=== PATIENT | female | born 1970 | race Two or more races ===

== ENCOUNTER 2016-12-05 13:56 | Emergency (ER) | payer OTHER ==
[2016-12-05 14:20] VITALS: TEMP 97.5
[2016-12-05] MEDS ORDERED: NS 1,000 ML IV ONE (14:47)
--- NOTE | 2016-12-05 14:47 | EDPHY ---
H & P Stated Complaint: vaginal Bleeding, Cramping HPI/ROS: HPI CHIEF COMPLAINT: Cramping, menstrual bleeding HISTORY OF PRESENT ILLNESS: This patient 46-year-old female she presents emergency room by private vehicle for menstrual bleeding and pelvic cramping. She states initially yesterday she developed some pelvic cramping. She then developed vaginal bleeding today around 4:00 a.m.. Has had 3 tampons today. Bright red blood with some clots. Ongoing pelvic cramping. Denies being . States she has not had a menses in 2 years. No new medications. Past Medical History: No significant medical history Past Surgical History: Hernia repair and breast augmentation Social History: Denies daily use drugs alcohol tobacco products Family History: Noncontributory ROS REVIEW OF SYSTEMS: A comprehensive 10 point review of systems is otherwise negative aside from elements mentioned in the history of present illness. Exam Constitutional appears well nontoxic triage nursing summary reviewed, vital signs reviewed, awake/alert. Eyes normal conjunctivae and sclera, EOMI, PERRLA. HENT normal inspection, atraumatic, moist mucus membranes, no epistaxis, neck supple/ no meningismus, no raccoon eyes. Respiratory clear to auscultation bilaterally, normal breath sounds, no respiratory distress, no wheezing. Cardiovascular rate normal, regular rhythm, no murmur, no edema, distal pulses normal. Gastrointestinal soft, non-tender, no rebound, no guarding, normal bowel sounds, no distension, no pulsatile mass. Genitourinary no CVA tenderness. Musculoskeletal no midline vertebral tenderness, full range of motion, no calf swelling, no tenderness of extremities, no meningismus, good pulses, neurovascularly intact. Skin pink, warm, & dry, no rash, skin atraumatic. Neurologic awake, alert and oriented x 3, AAOx3, moves all 4 extremities equally, motor intact, sensory intact, CN II-XII intact, normal cerebellar, normal vision, normal speech. Psychiatric normal mood/affect. Heme/Lymph/Immune no lymphadenopathy. Differential Diagnosis: Includes but is not limited to in a particular order dysfunctional uterine bleeding, fibroid, AVM, ectopic , , miscarriage Medical Decision Making: Plan for this patient IV establishment, check blood work, electrolytes, CBC, , urinalysis, pelvic ultrasound, pelvic exam. Re-evaluation: 1553: Pelvic exam performed. [facility]. Pelvic exam unremarkable there is dark clotted blood posterior vault. Otherwise unremarkable. No significant hemorrhaging on exam. Ultrasound of the Pelvis The results of the study are 14mm endometrial thickening. Upper limit of normal. Otherwise unremarkable pelvic ultrasound. No mass no fibroids visualized.. I discussed the results of this study with the radiologist Dr. Oro. [id number]: Will consult OBGYN. 1706: I spoke with Dr. Cristina. Review this patient's case in detail. Her H&H are stable. She is hemodynamically stable no acute distress. Recommends following up they will call for follow-up appointment. She needs endometrial biopsy. I have explained this to the patient. She is comfortable going home. Ultrasound, blood work reviewed. She is not hemorrhaging here. Blood pressure stable. H&H stable. Source: Patient - Personal History LMP (Females 10-55): Now Current Tetanus/Diphtheria Vaccine: Yes Current Tetanus Diphtheria and Acellular Pertussis (TDAP): Yes - Medical/Surgical History Hx Asthma: No Hx Chronic Respiratory Disease: No Hx Diabetes: No Hx Cardiac Disease: No Hx Renal Disease: No Hx Cirrhosis: No Hx Alcoholism: No Hx HIV/AIDS: No Hx Splenectomy or Spleen Trauma: No Other PMH: PMH: denies. PSH: breast aumentation, hernia - Social History Smoking Status: Never smoked Constitutional: Initial Vital Signs Temperature (C) 36.4 C 12/05/16 13:59 Heart Rate 60 12/05/16 13:59 Respiratory Rate 18 12/05/16 13:59 Blood Pressure 123/76 H 12/05/16 13:59 O2 Sat (%) 96 12/05/16 13:59 O2 Delivery Mode Room Air Allergies/Adverse Reactions: No Known Allergies Allergy (Unverified 12/05/16 14:03) Home Medications: Medication Instructions Recorded NK [No Known Home Meds] 12/05/16 Medical Decision Making - Diagnostics Imaging Results: Imaging Impressions Pelvic/Renal Ultrasound 12/05/16 14:48 Impression: 1. Upper-normal endometrial lining with no clear etiology for vaginal bleeding. Query adenomyosis. 2. Normal ovaries. No adnexal mass or free fluid. Findings discussed with Emergency Department physician, Oscar Limon MD, at 1605 hours 12/05/2016. - Data Points Laboratory Results: Laboratory Results 12/05/16 15:01 08/17/17 15:01 12/05/16 12/05/16 12/05/16 15:01 15:01 15:01 WBC RBC Hgb Hct MCV MCH MCHC RDW Plt Count MPV Neut % (Auto) Lymph % (Auto) [place] % (Auto) Eos % (Auto) Baso % (Auto) Nucleat RBC Rel Count Absolute Neuts (auto) Absolute Lymphs (auto) Absolute Monos (auto) Absolute Eos (auto) Absolute Basos (auto) Absolute Nucleated RBC Immature Gran % Immature Gran # PT 13.7 SEC SEC (12.0-15.0) INR 1.06 (0.83-1.16) APTT 25.0 SEC SEC (23.0-38.0) Sodium 142 mEq/L mEq/L (134-144) Potassium 4.2 mEq/L mEq/L (3.5-5.2) Chloride 102 mEq/L mEq/L (97-110) Carbon Dioxide 26 mEq/l mEq/l (22-31) Anion Gap 14 mEq/L mEq/L (8-16) BUN 22 mg/dL mg/dL (7-23) Creatinine 0.9 mg/dL mg/dL (0.6-1.0) Estimated GFR > 60 Glucose 52 mg/dL L mg/dL (70-100) Calcium 9.0 mg/dL mg/dL (8.5-10.4) Beta HCG, Qual NEGATIVE Urine Color Urine Appearance Urine pH Ur Specific [place] Urine Protein Urine Ketones Urine Blood Urine Nitrate Urine Bilirubin Urine Urobilinogen Ur Leukocyte Esterase Urine Glucose 12/05/16 12/05/16 15:01 15:00 WBC 8.33 10^3/uL 10^3/uL (3.80-9.50) RBC 4.57 10^6/uL 10^6/uL (4.18-5.33) Hgb 14.5 g/dL g/dL (12.6-16.3) Hct 42.6 % % (38.0-47.0) MCV 93.2 fL fL (81.5-99.8) MCH 31.7 pg pg (27.9-34.1) MCHC 34.0 g/dL g/dL (32.4-36.7) RDW 13.2 % % (11.5-15.2) Plt Count 212 10^3/uL 10^3/uL (150-400) MPV 10.0 fL fL (8.7-11.7) Neut % (Auto) 56.7 % % (39.3-74.2) Lymph % (Auto) 32.5 % % (15.0-45.0) [place] % (Auto) 8.9 % % (4.5-13.0) Eos % (Auto) 1.2 % % (0.6-7.6) Baso % (Auto) 0.6 % % (0.3-1.7) Nucleat RBC Rel Count 0.0 % % (0.0-0.2) Absolute Neuts (auto) 4.72 10^3/uL 10^3/uL (1.70-6.50) Absolute Lymphs (auto) 2.71 10^3/uL 10^3/uL (1.00-3.00) Absolute Monos (auto) 0.74 10^3/uL 10^3/uL (0.30-0.80) Absolute Eos (auto) 0.10 10^3/uL 10^3/uL (0.03-0.40) Absolute Basos (auto) 0.05 10^3/uL 10^3/uL (0.02-0.10) Absolute Nucleated RBC 0.00 10^3/uL 10^3/uL (0-0.01) Immature Gran % 0.1 % % (0.0-1.1) Immature Gran # 0.01 10^3/uL 10^3/uL (0.00-0.10) PT INR APTT Sodium Potassium Chloride Carbon Dioxide Anion Gap BUN Creatinine Estimated GFR Glucose Calcium Beta HCG, Qual Urine Color COLORLESS Urine Appearance CLEAR Urine pH 7.0 (5.0-7.5) Ur Specific [place] 1.002 (1.002-1.030) Urine Protein NEGATIVE (NEGATIVE) Urine Ketones NEGATIVE (NEGATIVE) Urine Blood NEGATIVE (NEGATIVE) Urine Nitrate NEGATIVE (NEGATIVE) Urine Bilirubin NEGATIVE (NEGATIVE) Urine Urobilinogen NEGATIVE EU EU (0.2-1.0) Ur Leukocyte Esterase NEGATIVE (NEGATIVE) Urine Glucose NEGATIVE (NEGATIVE) Medications Given: Discontinued Medications Sodium Chloride (Ns) 1,000 mls @ 0 mls/hr IV EDNOW ONE; Wide Open PRN Reason: Protocol Stop: 12/05/16 14:48 Last Admin: 12/05/16 15:15 Dose: 1,000 mls Departure - Departure Disposition: Home, Routine, Self-Care Clinical Impression: DUB (dysfunctional uterine bleeding) Condition: Good Instructions: Dysfunctional Uterine Bleeding (ED) Additional Instructions: 1. Return emergency room if you have severe vaginal bleeding this includes more than 1 pad per hour you feel lightheaded or have severe pain. 2. Please follow up with OBGYN outpatient. Please call their for follow-up appointment. Referrals: Lety Cristina MD [Medical Doctor] - As per Instructions
[2016-12-05 15:08] LABS: % IMMATURE GRANULYOCYTES 0.1 % (0.0-1.1); ABSOLUTE IMMATURE GRANULOCYTES 0.01 10^3/uL (0.00-0.10); ADD DIFF? NO; ADD MORPH? NO; ADD SCAN? NO; ATYPICAL LYMPHOCYTE FLAG 10 (0-99); FRAGMENT RBC FLAG 0 (0-99); HEMATOCRIT 42.6 % (38.0-47.0); HEMOGLOBIN 14.5 g/dL (12.6-16.3); LEFT SHIFT FLG 0 (0-99); LIPEMIA HEMOLYSIS FLAG 90 (0-99); MEAN CELL HEMOGLOBIN 31.7 pg (27.9-34.1); MEAN CELL VOLUME 93.2 fL (81.5-99.8); PLATELET CLUMPS FLAG 10 (0-99); PLATELET COUNT 212 10^3/uL (150-400); RED BLOOD CELL COUNT 4.57 10^6/uL (4.18-5.33); RED CELL DISTRIBUTION WIDTH 13.2 % (11.5-15.2)
[2016-12-05 15:15] LABS: COLOR COLORLESS; LEUKOCYTE ESTERASE,URINE NEGATIVE (NEGATIVE); NITRITE,URINE NEGATIVE (NEGATIVE)
[2016-12-05 15:18] LABS: INR 1.06 (0.83-1.16); PROTIME(PATIENT) 13.7 SEC (12.0-15.0)
[2016-12-05 15:27] LABS: ANION GAP 14 mEq/L (8-16); CARBON DIOXIDE 26 mEq/l (22-31); CHLORIDE 102 mEq/L (97-110); CREATININE 0.9 mg/dL (0.6-1.0); GLOMERULAR FILTRATION RATE > 60; GLUCOSE 52 mg/dL (70-100); POTASSIUM 4.2 mEq/L (3.5-5.2); SODIUM 142 mEq/L (134-144)
[2016-12-05 16:14] VITALS: BP 103/75; PULSE 51; RESP 16; O2SAT 97
== END 2016-12-05 17:30 | disposition home or self-care (01) ==
DX: N93.8 Other specified abnormal uterine and vaginal bleeding (principal); E86.9 Volume depletion, unspecified

== ENCOUNTER 2017-08-26 10:26 | Inpatient (IN) | payer OTHER ==
[2017-08-26] MEDS ORDERED: NS 500 ML IV ONE (10:36)
[2017-08-26] MEDS ORDERED: IOPAMIDOL (ISOVUE-300) 100 ML BTL ONE (10:41)
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
[2017-08-26 10:49] LABS: PLATELET COUNT 244 10^3/uL (150-400)
[2017-08-26 11:03] LABS: INR 0.98 (0.83-1.16); PROTIME(PATIENT) 13.2 SEC (12.0-15.0)
[2017-08-26] MEDS ORDERED: NALOXONE HCL 0.4 MG/ML INJ IVP PRN (12:03)
[2017-08-26] MEDS ORDERED: HYDROCODONE/APAP 5/325 TAB PO PRN (12:03)
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
[2017-08-26] MEDS: ONDANSETRON 4 MG/2 ML VIAL IVP PRN ×2 (15:26→21:05)
[2017-08-26] MEDS: OXYCODONE/APAP 5/325 TAB PO PRN ×3 (15:26→23:38)
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
[2017-08-26] MEDS ORDERED: CETIRIZINE 10 MG TAB PO PRN (21:05)
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
[2017-08-27] MEDS: OXYCODONE/APAP 5/325 TAB PO PRN ×3 (03:43→15:44)
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
[2017-08-27] MEDS: ONDANSETRON DISINTEGRATING 4 MG TAB PO PRN ×3 (07:35→17:53)
--- NOTE | 2017-08-27 12:21 | ASMTCMCOM ---
CM Note CM Note Notes: As of now, no surgeries are scheduled for patient. She will follow up with plastic surgery as an outpatient, Neurosurgery has cleared her, and ortho recommends closed treatment of the pelvic ring injury with protected toe touch weight bearing. PT/OT will work with patient today. FUR TRIMMING MACHINE OPERATOR has cleared her. An inpatient rehab consult has been ordered. Case Management will follow for any potential discharge needs. Date Signed: 08/27/2017 12:20 PM Electronically Signed By:Bridget Kimble RN
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
[2017-08-27] MEDS ORDERED: HYDROmorphONE/DILAUDID 2 MG TAB PO PRN (19:25)
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
[2017-08-28] MEDS: ACETAMINOPHEN 325 MG TAB PO PRN ×2 (00:08→04:23)
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
--- NOTE | 2017-08-28 11:26 | ASMTCMCOM ---
CM Note CM Note Notes: PT/OT were both recommending IPR yesterday but OT now recommending home w/HHC, PT will work w/pt later on today. IPR is following but pt feels she will be able to go home w/HHC since her works from home and will be there to help her. Pt also has 3 children at home. If home w/HHC she would like to use [facility]; notified Laura w/[facility] and they can accept. Will follow up w/PT after they see pt to see if they agree w/home w/HHC. Date Signed: 08/28/2017 11:25 AM Electronically Signed By:Luisa Sanabria RN
[2017-08-28] MEDS: ENOXAPARIN 40 MG/0.4 ML SYR SC SCH (12:39)
[2017-08-28] MEDS: KETOROLAC 30 MG/1 ML SDV IVP PRN ×2 (14:45→22:37)
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
[2017-08-28] MEDS ORDERED: MAGNESIUM HYDROXIDE 30 ML UDCUP PO PRN (20:41)
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
[2017-08-29] MEDS ORDERED: LACTULOSE 20 GM/30 ML UDCUP PO PRN (08:46)
[2017-08-29] MEDS ORDERED: POLYETHYLENE GLYCOL 3350 17 GM PKT PO PRN (08:46)
[2017-08-29] MEDS ORDERED: BISACODYL 10 MG SUPP PR PRN (08:46)
[2017-08-29] MEDS ORDERED: traMADol 50 MG TAB PO PRN (08:47)
[2017-08-29] MEDS: SENNOSIDES/DOCUSATE SODIUM TAB PO SCH ×2 (09:00→22:00)
[2017-08-29] MEDS: ENOXAPARIN 40 MG/0.4 ML SYR SC SCH (09:00)
[2017-08-29] MEDS ORDERED: IOPAMIDOL (ISOVUE-300) 100 ML BTL ONE (09:22)
[2017-08-29] MEDS: KETOROLAC 30 MG/1 ML SDV IVP PRN ×2 (12:36→18:39)
--- NOTE | 2017-08-29 14:25 | ASMTCMCOM ---
CM Note CM Note Notes: Chart reviewed. Patient has Pnuemothorax that is being monitored. The plan is for her to go home with [facility] at this point in time with [facility] when medically cleared. Plan: Home with [facility] services Date Signed: 08/29/2017 02:25 PM Electronically Signed By:Lauren Taylor RN
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
[2017-08-30] MEDS: KETOROLAC 30 MG/1 ML SDV IVP PRN ×2 (04:48→14:59)
[2017-08-30 08:13] VITALS: BP 120/84
[2017-08-30] MEDS: SENNOSIDES/DOCUSATE SODIUM TAB PO SCH (09:33)
[2017-08-30] MEDS: ENOXAPARIN 40 MG/0.4 ML SYR SC SCH (09:34)
[2017-08-30] MEDS: ACETAMINOPHEN 325 MG TAB PO PRN ×2 (09:35→15:34)
--- NOTE | 2017-08-30 13:03 | PDIAF ---
- Diagnosis Diagnosis: Pelvic fracture/scapula fx/pneumothorax Code Status: Full Code - Medication Management Discharge Medications: Medications to Continue on Transfer Cetirizine [ZyrTEC 10 mg (*)] 10 mg PO DAILY PRN 08/26/17 [Last Taken 08/26/17] Herbals/Supplements -Info Only 1 ea PO DAILY 08/26/17 [Last Taken Unknown] Multivitamins [Multivitamin (*)] 1 each PO DAILY 08/26/17 [Last Taken 08/25/17] Acetaminophen [Tylenol 325mg (*)] 325 - 650 mg PO Q4HRS PRN tab 08/30/17 [Last Taken Unknown] Ibuprofen 800 mg PO TIDMEAL PRN #60 tablet 08/30/17 [Last Taken Unknown] oxyCODONE/APAP 5/325 [Percocet 5/325 (*)] 1 - 2 tab PO Q4HRS PRN #30 tab [Last Taken Unknown] Discharge Medications: Refer to the Discharge Home Medication list for PRN reason. - Orders Services needed: Home Care, Registered Nurse Home Care Face to Face: I certify that this patient was under my care and that I had the required zuve-uj-bywd encounter meeting the encounter requirements on the discharge day. My findings support the fact that the patient is homebound as defined in Home Care Face to Face Continued: CMS Chapter 7 Medicare Benefits Manual 30.1.1 , The condition of the patient is such that there exists a normal inability to leave home and consequently, leaving home would require a considerable and taxing effort. Diet Recommendation: no restrictions on diet Diet Texture: Regular Texture Diet Additional Instructions: Per NeuroSurgery (Dr. Trinidad's team), ok to not wear the Jewitt Brace. Please follow up with Dr. Trinidad's office in 4 weeks. Please call to make your appointment. Per Ortho (Dr. Toro), continue weight bearing as tolerated on LUE and TTWB on LLE with walker. Please follow up with Dr. Toro in his office at [facility] in 2 weeks. Please call to make your appointment. - Follow Up Care Current Providers and Referrals: Dilip Lira MD [Medical Doctor] - follow up in 1 week (call [phone] to schedule- CXR prior) Shantanu Meza MD [Medical Doctor] - July Trinidad MD [Medical Doctor] - Patient,NotPresent [Primary Care Provider] - As per Instructions Alcides Toro MD [Medical Doctor] -
--- NOTE | 2017-08-30 16:30 | ASMTLACE ---
JOSEPHE Length of stay for Answers: 4-6 days current admission Acuity / Level of Answers: Yes Care: Did the patient have an inpatient admission? # of Emergency department Answers: 1-2 visits in the last 6 months Social determinants Answers: Mental health diagnosis (anxiety, depression, pers onality disorders, etc.) Score: 11 Date Signed: 08/30/2017 04:29 PM Electronically Signed By:Vilma Cannon RN
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
== END 2017-08-30 15:46 | disposition home health service (06) | DRG 964 ==
LOC: EDUNIT# → F3N 13:09
PROVIDERS: ADMIT Surgery; ATTEND Surgery
DX: S27.0XXA Traumatic pneumothorax, initial encounter (principal); S22.41XA Multiple fractures of ribs, right side, initial encounter for closed fracture; S32.810A Multiple fractures of pelvis with stable disruption of pelvic ring, initial encounter for closed fracture; S22.080A Wedge compression fracture of T11-T12 vertebra, initial encounter for closed fracture; S32.19XA Other fracture of sacrum, initial encounter for closed fracture; T85.898A Other specified complication of other internal prosthetic devices, implants and grafts, initial encounter; S42.192A Fracture of other part of scapula, left shoulder, initial encounter for closed fracture; S40.811A Abrasion of right upper arm, initial encounter; S40.812A Abrasion of left upper arm, initial encounter; S80.811A Abrasion, right lower leg, initial encounter; S80.812A Abrasion, left lower leg, initial encounter; Y81.2 Prosthetic and other implants, materials and accessory general- and plastic-surgery devices associated with adverse incidents; Y92.414 Local residential or business street as the place of occurrence of the external cause; V14.4XXA Pedal cycle driver injured in collision with heavy transport vehicle or bus in traffic accident, initial encounter; Y93.55 Activity, bike riding
CPT/HCPCS: 82947-QW; 92523-GN; 97116-GP; 97163-GP; 97165-GO; 97530-GO; 97530-GP; 97535-GO; G0480; J1650; J1885; J2270; J2405; Q9967

== ENCOUNTER → 2017-09-03 | Outpatient (CLI) | payer OTHER | LOC: FIMAGING 10:39 | PROVIDERS: ATTEND Surgery | DX: J93.9 Pneumothorax, unspecified (principal); J98.11 Atelectasis; S22.42XD Multiple fractures of ribs, left side, subsequent encounter for fracture with routine healing; J94.2 Hemothorax ==

== ENCOUNTER → 2017-09-10 | Outpatient (CLI) | payer OTHER | LOC: BMCIMAGING 10:04 | PROVIDERS: ATTEND Orthopaedic Surgery Hand Surgery | DX: S32.512D Fracture of superior rim of left pubis, subsequent encounter for fracture with routine healing (principal); S32.111D Minimally displaced Zone I fracture of sacrum, subsequent encounter for fracture with routine healing ==

== ENCOUNTER → 2017-09-16 | Outpatient (CLI) | payer OTHER | LOC: FIMAGING 11:22 | PROVIDERS: ATTEND Surgery | DX: Z09 Encounter for follow-up examination after completed treatment for conditions other than malignant neoplasm (principal); Z87.09 Personal history of other diseases of the respiratory system ==

== ENCOUNTER 2017-09-17 11:42 | Day surgery (SDC) | payer OTHER ==
[2017-09-17] MEDS ORDERED: LR 1,000 ML IV ONE (11:56)
[2017-09-17] MEDS ORDERED: LIDOCAINE 1% 300 MG/30 ML SDV ONE (12:40)
[2017-09-17] MEDS ORDERED: BACITRACIN ZINC 14.2 GM OINTTUBE TP ONE (12:40)
[2017-09-17] MEDS ORDERED: EPINEPHrine 1 MG/ML INJ ONE (12:41)
[2017-09-17] MEDS ORDERED: BACITRACIN 50,000 UNITS/10 ML SYR IRR ONE (12:41)
[2017-09-17] MEDS ORDERED: GENTAMICIN SULFATE 80 MG/2 ML VIAL ONE (12:41)
[2017-09-17] MEDS ORDERED: BUPIVACAINE 0.25% 30 ML SDV ONE (12:41)
[2017-09-17] MEDS ORDERED: ceFAZolin 1 GM/5 ML SYR ONE (12:48)
[2017-09-17] MEDS ORDERED: MIDAZOLAM 2 MG/2 ML VIAL IVP ONE (12:59)
--- NOTE | 2017-09-17 12:59 | PDANEPAE ---
ANE History of Present Illness Left breast implant rupture Cosmetic ANE Past Medical History - Cardiovascular History Hx Hypertension: No Hx Arrhythmias: No Hx Chest Pain: No Hx Coronary Artery / Peripheral Vascular Disease: No Hx CHF / Valvular Disease: No Hx Palpitations: No Cardiovascular History Comment: BP AND HR RUN LOW - Pulmonary History Hx COPD: No Hx Asthma/Reactive Airway Disease: No Hx Recent Upper Respiratory Infection: No Hx Oxygen in Use at Home: No Hx Sleep Apnea: No Sleep Apnea Screening Result - Last Documented: Negative Pulmonary History Comment: CURRENT PNEUMOTHORAX- HAS BEEN CLEARED FOR SURGERY - Neurologic History Hx Cerebrovascular Accident: No Hx Seizures: No Hx Dementia: No - Endocrine History Hx Diabetes: No Endocrine History Comment: MINOR HYPOTHYROIDISM- NEVER STABILIZED WITH LEVOTHYROXINE SO SHE HASN'T TAKEN ANY MEDICATIONS IN YEARS - Renal History Hx Renal Disorders: No - Liver History Hx Hepatic Disorders: No - Neurological & Psychiatric Hx Hx Neurological and Psychiatric Disorders: No - Cancer History Hx Cancer: No - Congenital Disorder History Hx Congenital Disorders: No - GI History Hx Gastrointestinal Disorders: No Gastrointestinal History Comment: CONSTIPATION WITH NARCOTICS - Other Health History Other Health History: WEARS GLASSES/ CONTACTS - Chronic Pain History Chronic Pain: No - Surgical History Prior Surgeries: HERNIA REPAIR. BREAST AUGMENTATION. EYE SURGERY BEFORE LASIK SURG ANE Review of Systems Review of Systems: - Exercise capacity METS (RN): 5 METS ANE Patient History - Allergies Allergies/Adverse Reactions: hydrocodone Allergy (Unverified 09/17/17 11:58) makes me throw up oxycodone Allergy (Verified 09/17/17 11:58) makes me throw up - Home Medications Home medications: home medication list seen and reviewed Home Medications: Acetaminophen [Tylenol 325mg (*)] PRN 09/12/17 [Last Taken 09/17/17] Herbals/Supplements -Info Only 09/12/17 [Last Taken 09/12/17] Ibuprofen PRN 09/12/17 [Last Taken 09/17/17] ZyrTEC 10 mg (*) 09/12/17 [Last Taken Unknown] - NPO status NPO Since - Liquids (Date): 09/17/17 NPO Since - Liquids (Time): 09:00 NPO Since - Solids (Date): 09/17/17 NPO Since - Solids (Time): 05:00 - Anes Hx Anes Hx: no prior problems - Smoking Hx Smoking Status: Never smoked - Family Anes Hx Family Hx Anesthesia Complications: NONE ANE Labs/Vital Signs - Vital Signs Blood Pressure: 105/69 Heart Rate: 62 Respiratory Rate: 16 O2 Sat (%): 94 Height: 154 cm Weight: 58.967 kg ANE Physical Exam - Airway Neck exam: FROM Mallampati Score: Class 1 Mouth exam: normal dental/mouth exam - Pulmonary Pulmonary: no respiratory distress - Cardiovascular Cardiovascular: regular rate and rhythym - ASA Status ASA Status: I ANE Anesthesia Plan Anesthesia Plan: GA w LMA
[2017-09-17] MEDS ORDERED: MIDAZOLAM 2 MG/2 ML VIAL ONE (13:00)
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
[2017-09-17] MEDS ORDERED: fentaNYL 100 MCG/2 ML INJ ONE ×2 (13:15→14:09)
[2017-09-17] MEDS ORDERED: PROPOFOL 200 MG/20 ML VIAL ONE (13:16)
[2017-09-17] MEDS ORDERED: ceFAZolin 1 GM VIAL ONE ×2 (13:32)
[2017-09-17] MEDS ORDERED: ONDANSETRON 4 MG/2 ML VIAL ONE ×2 (14:22→15:08)
[2017-09-17] MEDS ORDERED: DEXAMETHASONE 4 MG/ML VIAL ONE (14:22)
[2017-09-17] MEDS ORDERED: ONDANSETRON 4 MG/2 ML VIAL IVP PRN (14:25)
[2017-09-17] MEDS ORDERED: PROMETHAZINE HCL 25 MG/ML INJ IVP PRN (14:25)
[2017-09-17] MEDS ORDERED: fentaNYL 100 MCG/2 ML INJ IVP PRN (14:25)
[2017-09-17] MEDS ORDERED: NALOXONE HCL 0.4 MG/ML INJ IVP PRN (14:25)
[2017-09-17] MEDS ORDERED: HYDROmorphONE/DILAUDID 2 MG/ML INJ IVP PRN (14:25)
--- NOTE | 2017-09-17 15:02 | POSTANESTH ---
Post Anesthetic Evaluation Cardiovascular Status: Normal, Stable Respiratory Status: Normal, Stable Level of Consciousness/Mental Status: Can Participate in Eval Pain Control: Adequate, Prn Tx Ordered Nausea/Vomiting Control: Adequate, Prn Tx Ordered Complications Possibly Related to Anesthesia: None Noted
--- NOTE | 2017-09-17 15:03 | POSTOPPROG ---
Post Op Note Date of Operation: 09/17/17 Surgeon: Shantanu Meza Flavor Extractor: Mitchell MATTHEWS Anesthesia: LMA Pre-op Diagnosis: ruptured left implant Post-op Diagnosis: Same Inf/Abcess present in the surg proc area at time of surgery?: No EBL: Minimal
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
[2017-09-17] MEDS ORDERED: IBUPROFEN 200 MG TAB PO ONE (16:15)
[2017-09-17 16:39] VITALS: BP 103/66
== END 2017-09-17 16:50 | disposition home or self-care (01) ==
LOC: FSGY 11:42
PROVIDERS: ATTEND Plastic Surgery
PROC: 0HPT0JZ Removal of Synthetic Substitute from Right Breast, Open Approach (ICD-10-PCS; principal; 2017-09-17 13:00)
PROC: 0HPU0JZ Removal of Synthetic Substitute from Left Breast, Open Approach (ICD-10-PCS; principal; 2017-09-17 13:00)
PROC: 0HC Skin and Breast, Extirpation (ICD-10-PCS; principal; 2017-09-17 13:00)
PROC: 0H0V0JZ Alteration of Bilateral Breast with Synthetic Substitute, Open Approach (ICD-10-PCS; principal; 2017-09-17 13:00)
DX: T85.49XA Other mechanical complication of breast prosthesis and implant, initial encounter (principal); S27.0XXD Traumatic pneumothorax, subsequent encounter; S32.509D Unspecified fracture of unspecified pubis, subsequent encounter for fracture with routine healing; S42.192D Fracture of other part of scapula, left shoulder, subsequent encounter for fracture with routine healing; S22.42XD Multiple fractures of ribs, left side, subsequent encounter for fracture with routine healing; V14 Pedal cycle rider injured in collision with heavy transport vehicle or bus; Y93.55 Activity, bike riding; Y92.414 Local residential or business street as the place of occurrence of the external cause; Y99.8 Other external cause status; Y81.2 Prosthetic and other implants, materials and accessory general- and plastic-surgery devices associated with adverse incidents
CPT/HCPCS: J0171; J0690; J1100; J1580; J2250; J2405; J2704; J3010

== ENCOUNTER → 2017-09-22 | Outpatient (CLI) | payer OTHER | LOC: FIMAGING 13:48 | PROVIDERS: ATTEND Physician Assistant | DX: M54.6 Pain in thoracic spine (principal); S22.080D Wedge compression fracture of T11-T12 vertebra, subsequent encounter for fracture with routine healing; Y93.55 Activity, bike riding; V13.0XXD Pedal cycle driver injured in collision with car, pick-up truck or van in nontraffic accident, subsequent encounter; R93.8 Abnormal findings on diagnostic imaging of other specified body structures ==

== ENCOUNTER → 2017-09-22 | Outpatient (CLI) | payer OTHER | LOC: BMCIMAGING 09:14 | PROVIDERS: ATTEND Orthopaedic Surgery Hand Surgery | DX: S32.810D Multiple fractures of pelvis with stable disruption of pelvic ring, subsequent encounter for fracture with routine healing (principal); V13.0XXD Pedal cycle driver injured in collision with car, pick-up truck or van in nontraffic accident, subsequent encounter; Y93.55 Activity, bike riding ==

== ENCOUNTER → 2017-10-06 | Outpatient (CLI) | payer OTHER | LOC: BMCIMAGING 10:16 | PROVIDERS: ATTEND Orthopaedic Surgery Hand Surgery | DX: S32.810D Multiple fractures of pelvis with stable disruption of pelvic ring, subsequent encounter for fracture with routine healing (principal) ==

== ENCOUNTER → 2017-10-20 | Outpatient (CLI) | payer OTHER | LOC: BMCIMAGING 10:10 | PROVIDERS: ATTEND Orthopaedic Surgery Hand Surgery | DX: S32.592D Other specified fracture of left pubis, subsequent encounter for fracture with routine healing (principal) ==

== ENCOUNTER → 2017-11-03 | Outpatient (CLI) | payer OTHER | LOC: BMCIMAGING 13:31 | PROVIDERS: ATTEND Orthopaedic Surgery Hand Surgery | DX: S32.810A Multiple fractures of pelvis with stable disruption of pelvic ring, initial encounter for closed fracture (principal) ==

== ENCOUNTER → 2017-12-05 | Outpatient (CLI) | payer OTHER | LOC: BMCIMAGING 10:41 | PROVIDERS: ATTEND Orthopaedic Surgery Hand Surgery | DX: S32.810D Multiple fractures of pelvis with stable disruption of pelvic ring, subsequent encounter for fracture with routine healing (principal); S22.080D Wedge compression fracture of T11-T12 vertebra, subsequent encounter for fracture with routine healing; M53.86 Other specified dorsopathies, lumbar region ==